=== PATIENT | female | born 1940 | race Caucasian/White ===

== ENCOUNTER 2019-02-17 21:14 | Emergency (ER) | payer MEDICARE, BC ==
--- OUTSIDE RECORDS SUMMARY | 2019-02-17 21:26 | XMS REPORT | Continuity of Care Document ---
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 [phone] Problems Active Problems Provider Date Abnormal composition of feces Annmarie Woodson PA-C Onset: 02/14/2019 Social History Type Date Description Comments Sex Unknown Tobacco Use Start: Unknown End: Unknown Patient is a former smoker Smoking Status Reviewed: 02/14/19 Patient is a former smoker Allergies, Adverse Reactions, Alerts Active Allergies Reaction Severity Comments Date Sulfa 02/14/2019 Inactive Allergies NKDA 02/14/2019 Medications Active Medications SIG Qnty Indications Ordering Provider Date Levetiracetam Kecia Riley NP 750mg Tablets Rosuvastatin Calcium Unknown 5mg Tablets Aspirin Adult Low Dose 1 by mouth Unknown 81mg every day Tablets DR Immunizations Description No Information Available Vital Signs Date Vital Result Comment 02/14/2019 7:49am Height 61 inches 5'1" Weight 134.00 lb BP Systolic 132 mmHg BP Diastolic 66 mmHg Heart Rate 78 /min BMI (Body Mass Index) 25.3 kg/m2 Results Description No Information Available Procedures Description No Information Available Medical Devices Description No Information Available Encounters Description No Information Available Assessments Date Code Description Provider 02/14/2019 R19.5 Other fecal abnormalities Annmarie Woodson PA-C Plan of Treatment Future Appointment(s):03/21/2019 11:45 am - Ashley Hector MD at [facility]02/14/2019 - [id number] Other fecal abnormalities Functional Status Description No Information Available Mental Status Description No Information Available Referrals Description No Information Available
[2019-02-17 22:34] LABS: ABS Basophils 0.1 10^3/ul (0-0.2); ABS Eosinophils 0.3 10^3/ul (0-0.6); ABS Lymphocytes 2.1 10^3/ul (1.0-4.8); ABS Monocytes 0.6 10^3/ul (0-0.8); ABS Neutrophils 5.4 10^3/ul (1.5-7.7); Eosinophil % 3.2 %; Hematocrit 38 % (35-47); Hemoglobin 12.9 g/dL (12.0-16.0); Lymphocyte % 25.1 %; Mean Corpuscular HGB Conc 34 g/dL (31-36); Mean Corpuscular Hemoglobin 31 pg (27-31); Mean Corpuscular Volume 90 fL (80-97); Mean Platelet Volume 8.7 fL (7.4-10.4); Platelet Count 160 10^3/uL (150-450); Red Blood Count 4.21 10^6 /uL (3.70-4.87); Red Cell Distribution Width 13 % (10-15); White Blood Count 8.4 10^3/uL (3.5-10.8)
[2019-02-17 23:07] LABS: Albumin/Globulin Ratio 1.7 (1-3); BUN/Creatinine Ratio 20.4 (8-20); C Reactive Protein 1.84 mg/L (<8.01); Calcium 9.1 mg/dL (8.6-10.3); EGFR African American 70.7 (>60); EGFR Non-African American 58.5 (>60); Globulin 2.3 g/dL (2-4); Potassium 3.7 mmol/L (3.5-5.0); Total Bilirubin 0.4 mg/dL (0.2-1.0); Total Protein 6.3 g/dL (6.4-8.9)
[2019-02-18] MEDS ORDERED: Iodixanol* (CONTRAST) 320 MG/ML 100 ML SDV IV ONE (00:11)
--- NOTE | 2019-02-18 01:53 | ED ---
GI/ HPI - HPI Summary HPI Summary: Patient presents for possible constipation with abdominal cramps and low bilateral backache. No bowel movement for 3 days. Back pain described as bilateral, constant over the past 3 days. Abdominal cramps described as intermittent, mild. Associated nausea. Patient has not taken any meds at home for constipation. Denies fever, cough, sore throat, CP, SOB, V/D, change in urine, vaginal symptoms. Positive Colocort test 10 days ago. Patient has appointment for colonoscopy 21 March. Abdominal surgical history is total hysterectomy. - History of Current Complaint Chief Complaint: EDConstipation Time Seen by Provider: 02/17/19 22:10 Stated Complaint: CONSTIPATION PER PATIENT Hx Obtained From: Patient Onset/Duration: Started Days Ago Timing: Intermittent Severity: Moderate Current Severity: Moderate Pain Intensity: 6 Location of Pain: Diffuse Pain Characteristics: Cramping Associated Signs and Symptoms: Positive: Nausea, Constipation - Allergy/Home Medications Allergies/Adverse Reactions: Allergies Allergy/AdvReac Type Severity Reaction Status Date / Time MS Meloxicam [Meloxicam] Allergy Facial Verified 10/15/14 08:13 Redness/Flushing MS Phenytoin [From Dilantin] Allergy Hives Verified 10/15/14 08:13 MS Statins [Statins] Allergy Leg Cramps Verified 10/15/14 08:13 MS Sulfa Drugs [Sulfa Drugs] Allergy NAUSEA/DIAR Verified 10/15/14 08:13 WENDI Home Medications: Home Medications Aspirin [Aspir-Low] 81 mg PO DAILY WITH MEAL 02/17/19 [History Confirmed ] Rosuvastatin Calcium 5 mg PO DAILY WITH MEAL 02/17/19 [History Confirmed ] Ubidecarenone [Coq-10] 30 mg PO DAILY 02/17/19 [History Confirmed 02/17/19] PMH/Surg Hx/FS Hx/Imm Hx Endocrine/Hematology History: Reports: Hx Anemia Denies: Hx Diabetes Cardiovascular History: Reports: Hx Angioplasty, Hx Coronary Artery Disease, Hx Hypercholesterolemia, Hx Hypertension Denies: Hx Pacemaker/ICD Respiratory History: Reports: Hx Pneumonia GI History: Reports: Hx Gastroesophageal Reflux Disease, Hx Irritable Bowel, Other GI Disorders - CONSTIPATION SINCE ON PERCOCET History: Denies: Hx Renal Disease Musculoskeletal History: Reports: Hx Arthritis - Left Hip, Hx Back Problems - Spinal Stenosis, Hx Bursitis, Hx Fibromyalgia - From shingles, Other Musculoskeletal History - STENOSIS LOWER BACK Sensory History: Reports: Hx Contacts or Glasses - Reading Denies: Hx Hearing Aid Opthamlomology History: Reports: Hx Contacts or Glasses - Reading Neurological History: Reports: Hx Seizures, Other Neuro Impairments/Disorders - Hx Brain Bleed Psychiatric History: Denies: Hx Panic Disorder - Cancer History Cancer Type, 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 - [place] Hx Chemotherapy: No Hx Radiation Therapy: No - Surgical History Surgery Procedure, Year, and Place: LEFT HIP REPLACEMENT Hx Anesthesia Reactions: No - Immunization History Immunizations Up to Date: Yes Infectious Disease History: No Infectious Disease History: Reports: Hx Shingles Denies: Traveled Outside the [place] in Last 30 Days - Family History Known Family History: Positive: Non-Contributory - Social History Alcohol Use: None Alcohol Amount: 1 glass wine/week Substance Use Type: Reports: None Substance Use Comment - Amount & Last Used: tramadol, skelaxin Smoking Status (MU): Former Smoker Type: Cigarettes Amount Used/How Often: 6-7 CIGARETTES PER DAY X 5 YEARS Have You Smoked in the Last Year: No Review of Systems Constitutional: Negative Eyes: Negative ENT: Negative Cardiovascular: Negative Respiratory: Negative Positive: Abdominal Pain, Nausea Genitourinary: Negative Musculoskeletal: Negative Skin: Negative Neurological: Negative Psychological: Normal All Other Systems Reviewed And Are Negative: Yes Physical Exam Triage Information Reviewed: Yes Vital Signs On Initial Exam: Initial Vitals Temp Pulse Resp BP Pulse Ox 97.9 F 77 15 150/72 97 02/17/19 21:17 02/17/19 21:17 02/17/19 21:17 02/17/19 21:17 02/17/19 21:17 Vital Signs Reviewed: Yes Appearance: Positive: Well-Appearing Skin: Positive: Warm Head/Face: Positive: Normal Head/Face Inspection Eyes: Positive: Normal Neck: Positive: Supple Respiratory/Lung Sounds: Positive: Clear to Auscultation Cardiovascular: Positive: Normal Abdomen Description: Positive: Other: - Mildly tender diffusely Musculoskeletal: Positive: Normal Neurological: Positive: Normal Psychiatric: Positive: Normal AVPU Assessment: Alert - Carmen Coma Scale Best Eye Response: 4 - Spontaneous Best Motor Response: 6 - Obeys Commands Best Verbal Response: 5 - Oriented Coma Scale Total: 15 Procedures - Sedation Patient Received Moderate/Deep Sedation with Procedure: No Diagnostics - Vital Signs Vital Signs Temp Pulse Resp BP Pulse Ox 02/18/19 01:02 66 128/67 98 02/18/19 01:00 66 99 02/18/19 00:38 69 147/73 98 02/18/19 00:00 68 99 02/17/19 23:02 65 158/71 97 02/17/19 23:00 62 99 02/17/19 22:14 69 94 02/17/19 22:04 66 94 02/17/19 22:02 73 139/77 96 02/17/19 21:17 97.9 F 77 15 150/72 97 - Laboratory Lab Results: Lab Results 02/17/19 02/17/19 Range/Units 22:28 22:28 WBC 8.4 (3.5-10.8) 10^3/uL RBC 4.21 (3.70-4.87) 10^6 /uL Hgb 12.9 (12.0-16.0) g/dL Hct 38 (35-47) % MCV 90 (80-97) fL MCH 31 (27-31) pg MCHC 34 (31-36) g/dL RDW 13 (10-15) % Plt Count 160 (150-450) 10^3/uL MPV 8.7 (7.4-10.4) fL Neut % (Auto) 63.5 % Lymph % (Auto) 25.1 % Weston % (Auto) 7.0 % Eos % (Auto) 3.2 % Baso % (Auto) 1.2 % Absolute Neuts (auto) 5.4 (1.5-7.7) 10^3/ul Absolute Lymphs (auto) 2.1 (1.0-4.8) 10^3/ul Absolute Monos (auto) 0.6 (0-0.8) 10^3/ul Absolute Eos (auto) 0.3 (0-0.6) 10^3/ul Absolute Basos (auto) 0.1 (0-0.2) 10^3/ul Absolute Nucleated RBC 0.0 10^3/ul Nucleated RBC % 0.0 Sodium 139 (135-145) mmol/L Potassium 3.7 (3.5-5.0) mmol/L Chloride 109 (101-111) mmol/L Carbon Dioxide 24 (22-32) mmol/L Anion Gap 6 (2-11) mmol/L BUN 19 (6-24) mg/dL Creatinine 0.93 (0.51-0.95) mg/dL Est GFR ( Amer) 70.7 (>60) Est GFR (Non-Af Amer) 58.5 (>60) BUN/Creatinine Ratio 20.4 H (8-20) Glucose 113 H (70-100) mg/dL Calcium 9.1 (8.6-10.3) mg/dL Total Bilirubin 0.40 (0.2-1.0) mg/dL AST 16 (13-39) U/L ALT 13 (7-52) U/L Alkaline Phosphatase 48 (34-104) U/L C-Reactive Protein 1.84 (<8.01) mg/L Total Protein 6.3 L (6.4-8.9) g/dL Albumin 4.0 (3.2-5.2) g/dL Globulin 2.3 (2-4) g/dL Albumin/Globulin Ratio 1.7 (1-3) Result Diagrams: 02/17/19 22:28 02/17/19 22:28 Lab Statement: Any lab studies that have been ordered have been reviewed, and results considered in the medical decision making process. GIGU Course/Dx - Course Course Of Treatment: Patient presents for possible constipation with abdominal cramps and low bilateral backache. No bowel movement for 3 days. Back pain described as bilateral, constant over the past 3 days. Abdominal cramps described as intermittent, mild. Associated nausea. Patient has not taken any meds at home for constipation. Denies fever, cough, sore throat, CP, SOB, V/D, change in urine, vaginal symptoms. Positive Colocort test 10 days ago. Patient has appointment for colonoscopy 21 March. Abdominal surgical history is total hysterectomy. Vital signs within normal limits. Labs unremarkable. CT abdomen and pelvis negative. - Diagnoses Provider Diagnoses: Constipation Discharge ED - Sign-Out/Discharge Documenting (check all that apply): Patient Departure - Discharge Plan Condition: Stable Disposition: HOME Prescriptions: Magnesium CITRATE* [Citrate of Magnesia*] 150 ml PO ONCE #1 btl Patient Education Materials: Constipation (ED) Referrals: Kecia Riley NP [Primary Care Provider] - - Billing Disposition and Condition Condition: STABLE Disposition: Home
[2019-02-18 02:11] VITALS: BP 138/76
== END 2019-02-18 02:10 | disposition home or self-care (01) ==
LOC: ED 21:14
DX: K59.00 Constipation, unspecified (principal); R11.0 Nausea; I25.10 Atherosclerotic heart disease of native coronary artery without angina pectoris; E78.00 Pure hypercholesterolemia, unspecified; I10 Essential (primary) hypertension; K21.9 Gastro-esophageal reflux disease without esophagitis; Z87.891 Personal history of nicotine dependence; Z79.82 Long term (current) use of aspirin; Z79.899 Other long term (current) drug therapy
CPT/HCPCS: 36415; 74018; 74177; 80053; 85025; 86140; 99283; Q9967